=== PATIENT | female | born 1990 | race Caucasian/White ===

== ENCOUNTER 2022-03-25 10:36 | Emergency (ER) | payer OTHER ==
[2022-03-25 10:57] VITALS: BP 116/81; PULSE 91; RESP 18; TEMP 97.3; BMI 27.4
[2022-03-25] MEDS ORDERED: ONDANSETRON 4 MG/2 ML VIAL IVPUSH ONE ×2 (11:33→13:06)
[2022-03-25] MEDS ORDERED: SODIUM CHLORIDE 1,000 ML IV STA ×2 (11:33→13:06)
[2022-03-25] MEDS ORDERED: ACETAMINOPHEN 1000 MG/100 ML BAG IVPB ONE (11:33)
[2022-03-25] MEDS ORDERED: FAMOTIDINE 20 MG/50 ML IVPB 20 MG/50 ML MG IVPB ONE (11:34)
[2022-03-25] MEDS ORDERED: ACETAMINOPHEN INJECTION 100 ML IVPB ONE (11:36)
[2022-03-25] MEDS ORDERED: FAMOTIDINE 10 MG/ML VIAL IVPB ONE (11:37)
[2022-03-25] MEDS ORDERED: ONDANSETRON 4 MG/2 ML VIAL ONE ×2 (11:37→13:07)
[2022-03-25 12:13] LABS: BASO % 0.4 % (0-2.0); EOS % 0.9 % (0-4.5); HEMATOCRIT 39.9 % (32.4-45.2); HEMOGLOBIN 13.5 GM/dL (10.7-15.3); LYMPH % 15.1 % (8-40); MCH 29.1 pg (25.7-33.7); MEAN CELL VOLUME 85.8 fl (80-96); MEAN PLT VOLUME 8.9 fl (7.5-11.1); NEUT % 78.6 % (42.8-82.8); PLATELET COUNT 439 10^3/uL (134-434); RBC 4.65 M/mm3 (3.60-5.2); RDW 13.2 % (11.6-15.6); WHITE BLOOD COUNT 14.6 K/mm3 (4.0-10.0)
[2022-03-25 12:24] LABS: EPI CELLS 14 /uL (0-25.1); HCG,QUALITATIVE URINE Negative; HYALINE CASTS 0 /uL (0-3.1); PH,URINE >= 9.0 (5.0-8.0); URINE APPEARANCE CLEAR; URINE BACTERIA 108 /uL (0-1359); URINE BILIRUBIN NEGATIVE (NEGATIVE); URINE COLOR YELLOW; URINE GLUCOSE (UA) NEGATIVE (NEGATIVE); URINE KETONE NEGATIVE (NEGATIVE); URINE LEUK ESTERASE NEGATIVE (NEGATIVE); URINE NITRITE NEGATIVE (NEGATIVE); URINE PROTEIN 1+ (NEGATIVE); URINE RBC 4 /uL (0-23.9); URINE UROBILINOGEN 0.2 mg/dL (0.2-1.0); URINE WBC 4 /uL (0-25.8)
[2022-03-25 12:31] LABS: BLOOD UREA NITROGEN 6.7 mg/dL (7-18); CALCIUM 9.4 mg/dL (8.5-10.1)
[2022-03-25 12:34] LABS: CREATININE 0.8 mg/dL (0.55-1.3)
[2022-03-25 12:35] LABS: BILIRUBIN,TOTAL 0.3 mg/dL (0.2-1); TOT PROT 7.8 g/dl (6.4-8.2)
== END 2022-03-25 15:56 | disposition home or self-care (01) ==
LOC: JER 10:36
PROC: 3E0333Z Introduction of Anti-inflammatory into Peripheral Vein, Percutaneous Approach (ICD-10-PCS; principal; 2022-03-25)
PROC: 3E033GC Introduction of Other Therapeutic Substance into Peripheral Vein, Percutaneous Approach (ICD-10-PCS; 2022-03-25)
PROC: 3E033GC Introduction of Other Therapeutic Substance into Peripheral Vein, Percutaneous Approach (ICD-10-PCS; 2022-03-25)
PROC: 3E033GC Introduction of Other Therapeutic Substance into Peripheral Vein, Percutaneous Approach (ICD-10-PCS; 2022-03-25)
PROC: 3E0337Z Introduction of Electrolytic and Water Balance Substance into Peripheral Vein, Percutaneous Approach (ICD-10-PCS; 2022-03-25)
PROC: 3E0337Z Introduction of Electrolytic and Water Balance Substance into Peripheral Vein, Percutaneous Approach (ICD-10-PCS; 2022-03-25)
DX: R11.2 Nausea with vomiting, unspecified (principal); G44.89 Other headache syndrome
CPT/HCPCS: 36415; 74177-TC; 76705-TC; 80053; 81003; 83690; 84703; 85025; 87086; 99285-25

== ENCOUNTER 2022-04-16 10:27 | Emergency (ER) | payer OTHER ==
[2022-04-16 10:41] VITALS: BMI 30.2
[2022-04-16] MEDS ORDERED: ONDANSETRON 4 MG/2 ML VIAL IVPUSH ONE (11:34)
[2022-04-16] MEDS ORDERED: ACETAMINOPHEN 1000 MG/100 ML BAG IVPB ONE (11:34)
[2022-04-16] MEDS ORDERED: SODIUM CHLORIDE 1,000 ML IV STA (11:34)
[2022-04-16] MEDS ORDERED: ACETAMINOPHEN INJECTION 100 ML IVPB ONE (11:53)
[2022-04-16] MEDS ORDERED: ONDANSETRON 4 MG/2 ML VIAL ONE (11:54)
[2022-04-16 12:09] LABS: BASO % 0.8 % (0-2.0); EOS % 2.7 % (0-4.5); HEMATOCRIT 38.8 % (32.4-45.2); HEMOGLOBIN 12.8 GM/dL (10.7-15.3); LYMPH % 29.1 % (8-40); MCH 28.4 pg (25.7-33.7); MCHC 32.9 g/dl (32.0-36.0); MEAN CELL VOLUME 86.4 fl (80-96); MEAN PLT VOLUME 9.3 fl (7.5-11.1); NEUT % 61.4 % (42.8-82.8); PLATELET COUNT 404 10^3/uL (134-434); RBC 4.49 M/mm3 (3.60-5.2); RDW 13.2 % (11.6-15.6); WHITE BLOOD COUNT 7.7 K/mm3 (4.0-10.0)
[2022-04-16 12:29] LABS: CALCIUM 8.8 mg/dL (8.5-10.1)
[2022-04-16 12:30] LABS: ALBUMIN 3.5 g/dl (3.4-5.0); BLOOD UREA NITROGEN 9.7 mg/dL (7-18)
[2022-04-16 12:33] LABS: CREATININE 0.8 mg/dL (0.55-1.3)
[2022-04-16 12:35] LABS: BILIRUBIN,TOTAL 0.2 mg/dL (0.2-1)
[2022-04-16] MEDS ORDERED: KETOROLAC TROMETHAMINE 60 MG/2 ML VIAL IM ONE (13:29)
[2022-04-16] MEDS ORDERED: KETOROLAC TROMETHAMINE 30 MG/1 ML VIAL ONE (13:32)
[2022-04-16 14:26] VITALS: BP 116/67; PULSE 83; RESP 18; TEMP 98.1
== END 2022-04-16 14:26 | disposition home or self-care (01) ==
LOC: JER 10:27
PROC: 3E0233Z Introduction of Anti-inflammatory into Muscle, Percutaneous Approach (ICD-10-PCS; principal; 2022-04-16)
PROC: 3E033GC Introduction of Other Therapeutic Substance into Peripheral Vein, Percutaneous Approach (ICD-10-PCS; 2022-04-16)
PROC: 3E033GC Introduction of Other Therapeutic Substance into Peripheral Vein, Percutaneous Approach (ICD-10-PCS; 2022-04-16)
PROC: 3E0337Z Introduction of Electrolytic and Water Balance Substance into Peripheral Vein, Percutaneous Approach (ICD-10-PCS; 2022-04-16)
DX: R51.9 Headache, unspecified (principal)
CPT/HCPCS: 36415; 70450-TC; 80053; 85025; 99285-25

== ENCOUNTER 2022-05-15 10:12 | Emergency (ER) | payer OTHER ==
[2022-05-15] MEDS ORDERED: FAMOTIDINE 20 MG/50 ML IVPB 20 MG/50 ML MG IVPB ONE ×2 (10:48→11:29)
[2022-05-15] MEDS ORDERED: SODIUM CHLORIDE 0.9% 500 ML INFUS.BAG IV ONE (10:48)
[2022-05-15] MEDS ORDERED: ONDANSETRON 4 MG/2 ML VIAL IVPUSH ONE ×2 (10:48→12:53)
[2022-05-15 11:01] VITALS: BP 118/74; PULSE 103; RESP 18; TEMP 98.2; BMI 30.2
[2022-05-15] MEDS ORDERED: ONDANSETRON 4 MG/2 ML VIAL ONE ×2 (11:29→13:04)
== END 2022-05-15 14:09 | disposition home or self-care (01) ==
LOC: JER 10:12
PROC: 3E033GC Introduction of Other Therapeutic Substance into Peripheral Vein, Percutaneous Approach (ICD-10-PCS; principal; 2022-05-15)
PROC: 3E033GC Introduction of Other Therapeutic Substance into Peripheral Vein, Percutaneous Approach (ICD-10-PCS; 2022-05-15)
PROC: 3E033GC Introduction of Other Therapeutic Substance into Peripheral Vein, Percutaneous Approach (ICD-10-PCS; 2022-05-15)
DX: R11.2 Nausea with vomiting, unspecified (principal)
CPT/HCPCS: 84703; 99284-25

== ENCOUNTER 2022-06-11 01:04 | Emergency (ER) | payer OTHER ==
[2022-06-11 01:13] VITALS: TEMP 98.1; BMI 30.2
[2022-06-11] MEDS ORDERED: SODIUM CHLORIDE 1,000 ML IV STA (02:40)
[2022-06-11 04:16] LABS: URINE APPEARANCE CLEAR; URINE BILIRUBIN NEGATIVE (NEGATIVE); URINE COLOR YELLOW; URINE GLUCOSE (UA) NEGATIVE (NEGATIVE); URINE KETONE NEGATIVE (NEGATIVE); URINE LEUK ESTERASE NEGATIVE (NEGATIVE); URINE NITRITE NEGATIVE (NEGATIVE); URINE PROTEIN NEGATIVE (NEGATIVE); URINE UROBILINOGEN 0.2 mg/dL (0.2-1.0)
[2022-06-11 04:36] LABS: ALBUMIN 3.7 g/dl (3.4-5.0); CALCIUM 9.4 mg/dL (8.5-10.1)
[2022-06-11 04:40] LABS: CREATININE 0.7 mg/dL (0.55-1.3)
[2022-06-11 04:41] LABS: BILIRUBIN,TOTAL 0.2 mg/dL (0.2-1); TOT PROT 7.1 g/dl (6.4-8.2)
[2022-06-11 04:49] LABS: BASO % 0.6 % (0-2.0); EOS % 2.5 % (0-4.5); HEMATOCRIT 38.7 % (32.4-45.2); HEMOGLOBIN 12.9 GM/dL (10.7-15.3); LYMPH % 21.5 % (8-40); MCH 28.7 pg (25.7-33.7); MCHC 33.2 g/dl (32.0-36.0); MEAN CELL VOLUME 86.6 fl (80-96); MEAN PLT VOLUME 9.9 fl (7.5-11.1); MONO % 6.9 % (3.8-10.2); NEUT % 68.5 % (42.8-82.8); PLATELET COUNT 396 10^3/uL (134-434); RBC 4.47 M/mm3 (3.60-5.2); RDW 13.4 % (11.6-15.6); WHITE BLOOD COUNT 13.4 K/mm3 (4.0-10.0)
[2022-06-11 05:19] VITALS: BP 110/76; PULSE 88; RESP 18
== END 2022-06-11 05:19 | disposition home or self-care (01) ==
LOC: JER 01:04
PROC: 3E0337Z Introduction of Electrolytic and Water Balance Substance into Peripheral Vein, Percutaneous Approach (ICD-10-PCS; principal; 2022-06-11)
DX: R55 Syncope and collapse (principal)
CPT/HCPCS: 36415; 80053; 81003; 84703; 85025; 93005; 93010; 99284-25

== ENCOUNTER 2022-08-05 10:44 | Emergency (ER) | payer OTHER ==
[2022-08-05 10:54] VITALS: RESP 18; BMI 30.2
[2022-08-05] MEDS ORDERED: ONDANSETRON 4 MG/2 ML VIAL IVPUSH ONE (11:35)
[2022-08-05] MEDS ORDERED: SODIUM CHLORIDE 1,000 ML IV STA (11:35)
[2022-08-05] MEDS ORDERED: ACETAMINOPHEN 1000 MG/100 ML BAG IVPB ONE (11:35)
[2022-08-05] MEDS ORDERED: ACETAMINOPHEN INJECTION 100 ML IVPB ONE (11:47)
[2022-08-05] MEDS ORDERED: ONDANSETRON 4 MG/2 ML VIAL ONE (11:47)
[2022-08-05 12:21] LABS: BASO % 1.3 % (0-2.0); EOS % 1.7 % (0-4.5); HEMATOCRIT 41.5 % (32.4-45.2); HEMOGLOBIN 13.3 GM/dL (10.7-15.3); MCH 27.7 pg (25.7-33.7); MEAN CELL VOLUME 86.4 fl (80-96); MEAN PLT VOLUME 9.3 fl (7.5-11.1); MONO % 5.5 % (3.8-10.2); NEUT % 68.5 % (42.8-82.8); PLATELET COUNT 453 10^3/uL (134-434); RDW 13.6 % (11.6-15.6); WHITE BLOOD COUNT 10.3 K/mm3 (4.0-10.0)
[2022-08-05 12:29] LABS: INR 1.09 (0.83-1.09); PROTHROMBIN TIME (PATIENT) 12.6 SEC (9.7-13.0)
[2022-08-05 12:44] LABS: CALCIUM 9.4 mg/dL (8.5-10.1)
[2022-08-05 12:45] LABS: ALBUMIN 3.8 g/dl (3.4-5.0); BLOOD UREA NITROGEN 11.1 mg/dL (7-18)
[2022-08-05 12:48] LABS: CREATININE 0.7 mg/dL (0.55-1.3)
[2022-08-05 12:49] LABS: BILIRUBIN,TOTAL 0.4 mg/dL (0.2-1)
[2022-08-05 12:50] LABS: TOT PROT 7.8 g/dl (6.4-8.2)
[2022-08-05 13:03] LABS: HCG,QUALITATIVE URINE Negative
[2022-08-05 13:11] LABS: PH,URINE >= 9.0 (5.0-8.0); URINE APPEARANCE CLEAR; URINE BILIRUBIN NEGATIVE (NEGATIVE); URINE COLOR YELLOW; URINE GLUCOSE (UA) NEGATIVE (NEGATIVE); URINE KETONE NEGATIVE (NEGATIVE); URINE LEUK ESTERASE NEGATIVE (NEGATIVE); URINE NITRITE NEGATIVE (NEGATIVE); URINE PROTEIN TRACE (NEGATIVE); URINE UROBILINOGEN 0.2 mg/dL (0.2-1.0)
[2022-08-05 15:58] VITALS: BP 101/55; PULSE 98; TEMP 98.4
== END 2022-08-05 16:26 | disposition home or self-care (01) ==
LOC: JER 10:44
PROC: 3E033GC Introduction of Other Therapeutic Substance into Peripheral Vein, Percutaneous Approach (ICD-10-PCS; principal; 2022-08-05)
DX: G44.89 Other headache syndrome (principal); R11.2 Nausea with vomiting, unspecified
CPT/HCPCS: 36415; 70450-TC; 80053; 81003; 84703; 85025; 85610; 87086; 99285-25

== ENCOUNTER 2022-08-20 07:46 | Emergency (ER) | payer OTHER ==
[2022-08-20 07:56] VITALS: BP 121/81; PULSE 101; RESP 18; TEMP 97; BMI 31.1
== END 2022-08-20 10:02 | disposition home or self-care (01) ==
LOC: JER 07:46
DX: R51.9 Headache, unspecified (principal); V49.40XA Driver injured in collision with unspecified motor vehicles in traffic accident, initial encounter
CPT/HCPCS: 99281-25

== ENCOUNTER 2022-09-10 11:22 | Emergency (ER) | payer OTHER ==
[2022-09-10 11:27] VITALS: RESP 18; TEMP 98.2; BMI 31.1
[2022-09-10] MEDS ORDERED: ONDANSETRON 4 MG/2 ML VIAL IVPUSH ONE ×2 (12:04→14:10)
[2022-09-10] MEDS ORDERED: SODIUM CHLORIDE 0.9% 500 ML INFUS.BAG IV ONE (12:04)
[2022-09-10] MEDS ORDERED: FAMOTIDINE 20 MG/50 ML IVPB 20 MG/50 ML MG IVPB ONE ×2 (12:04→12:25)
[2022-09-10] MEDS ORDERED: ONDANSETRON 4 MG/2 ML VIAL ONE ×2 (12:25→14:34)
[2022-09-10 13:28] LABS: BASO % 0.9 % (0-2.0); EOS % 1.7 % (0-4.5); HEMATOCRIT 39.4 % (32.4-45.2); HEMOGLOBIN 13.3 GM/dL (10.7-15.3); MCH 28.9 pg (25.7-33.7); MCHC 33.7 g/dl (32.0-36.0); MEAN CELL VOLUME 85.9 fl (80-96); MEAN PLT VOLUME 8.9 fl (7.5-11.1); MONO % 6.4 % (3.8-10.2); PLATELET COUNT 402 10^3/uL (134-434); RBC 4.58 M/mm3 (3.60-5.2); WHITE BLOOD COUNT 11.4 K/mm3 (4.0-10.0)
[2022-09-10 13:49] LABS: ALBUMIN 3.7 g/dl (3.4-5.0); CALCIUM 9.1 mg/dL (8.5-10.1)
[2022-09-10 13:50] LABS: BLOOD UREA NITROGEN 9.8 mg/dL (7-18)
[2022-09-10 13:52] LABS: CREATININE 0.6 mg/dL (0.55-1.3)
[2022-09-10 13:54] LABS: BILIRUBIN,TOTAL 0.2 mg/dL (0.2-1); TOT PROT 7.4 g/dl (6.4-8.2)
[2022-09-10] MEDS ORDERED: KETOROLAC TROMETHAMINE 15 MG/ML VIAL IVPUSH ONE (14:10)
[2022-09-10] MEDS ORDERED: ACETAMINOPHEN 1000 MG/100 ML BAG IVPB ONE (14:11)
[2022-09-10] MEDS ORDERED: ACETAMINOPHEN INJECTION 100 ML IVPB ONE (14:34)
[2022-09-10 15:44] VITALS: BP 120/75; PULSE 80
== END 2022-09-10 15:41 | disposition home or self-care (01) ==
LOC: JER 11:22
PROC: 3E0333Z Introduction of Anti-inflammatory into Peripheral Vein, Percutaneous Approach (ICD-10-PCS; principal; 2022-09-10)
PROC: 3E033GC Introduction of Other Therapeutic Substance into Peripheral Vein, Percutaneous Approach (ICD-10-PCS; 2022-09-10)
PROC: 3E033GC Introduction of Other Therapeutic Substance into Peripheral Vein, Percutaneous Approach (ICD-10-PCS; 2022-09-10)
PROC: 3E033GC Introduction of Other Therapeutic Substance into Peripheral Vein, Percutaneous Approach (ICD-10-PCS; 2022-09-10)
DX: R11.2 Nausea with vomiting, unspecified (principal)
CPT/HCPCS: 36415; 80053; 83690; 84703; 85025; 99284-25

== ENCOUNTER 2022-11-19 20:19 | Emergency (ER) | payer OTHER ==
[2022-11-19 20:23] VITALS: BP 137/83; PULSE 93; RESP 18; TEMP 98.7; BMI 36.6
[2022-11-19] MEDS ORDERED: SODIUM CHLORIDE 0.9% 500 ML INFUS.BAG IV ONE (21:09)
[2022-11-19] MEDS ORDERED: ACETAMINOPHEN 1000 MG/100 ML BAG IVPB ONE (21:24)
[2022-11-19] MEDS ORDERED: ACETAMINOPHEN INJECTION 100 ML IVPB ONE (21:35)
[2022-11-19 22:04] LABS: BASO % 0.6 % (0-2.0); EOS % 2.4 % (0-4.5); HEMATOCRIT 35.4 % (32.4-45.2); LYMPH % 24.7 % (8-40); MCH 28.6 pg (25.7-33.7); MEAN CELL VOLUME 84.3 fl (80-96); MEAN PLT VOLUME 9.5 fl (7.5-11.1); MONO % 5.2 % (3.8-10.2); NEUT % 67.1 % (42.8-82.8); PLATELET COUNT 389 10^3/uL (134-434); RDW 13.1 % (11.6-15.6); WHITE BLOOD COUNT 13.5 K/mm3 (4.0-10.0)
[2022-11-19 22:12] LABS: INR 1.03 (0.83-1.09)
[2022-11-19 22:17] LABS: ALBUMIN 3.3 g/dl (3.4-5.0); BLOOD UREA NITROGEN 12.7 mg/dL (7-18); CALCIUM 8.9 mg/dL (8.5-10.1)
[2022-11-19 22:20] LABS: CREATININE 0.8 mg/dL (0.55-1.3)
[2022-11-19 22:22] LABS: BILIRUBIN,TOTAL 0.1 mg/dL (0.2-1); TOT PROT 7.1 g/dl (6.4-8.2)
[2022-11-19 22:27] LABS: EPI CELLS 2 /uL (0-25.1); HYALINE CASTS 0 /uL (0-3.1); URINE APPEARANCE CLEAR; URINE BACTERIA 105 /uL (0-1359); URINE BILIRUBIN NEGATIVE (NEGATIVE); URINE COLOR YELLOW; URINE GLUCOSE (UA) NEGATIVE (NEGATIVE); URINE KETONE NEGATIVE (NEGATIVE); URINE LEUK ESTERASE NEGATIVE (NEGATIVE); URINE NITRITE NEGATIVE (NEGATIVE); URINE PROTEIN NEGATIVE (NEGATIVE); URINE RBC 11 /uL (0-23.9); URINE UROBILINOGEN 0.2 mg/dL (0.2-1.0); URINE WBC 1 /uL (0-25.8)
[2022-11-19] MEDS ORDERED: KETOROLAC TROMETHAMINE 15 MG/ML VIAL IVPUSH ONE (22:34)
[2022-11-19] MEDS ORDERED: KETOROLAC TROMETHAMINE 30 MG/1 ML VIAL ONE (22:35)
== END 2022-11-19 23:02 | disposition home or self-care (01) ==
LOC: JER 20:19
DX: M25.512 Pain in left shoulder (principal); R07.89 Other chest pain
CPT/HCPCS: 0241U-QW; 36415; 71045-TC-FY; 80053; 81003; 83735; 84443; 84484; 84703; 85025; 85379; 85610; 85730; 87086; 93005; 93010; 99285-25